=== PATIENT | male | born 1980 | race Caucasian/White ===

== ENCOUNTER → 2017-06-09 | Outpatient (CLI) | payer BC ==
[~2017-06-09] MED LIST: MULT-506 PO
--- NOTE | 2017-06-09 10:34 | DIAGNOSTIC IMAGING REPORT ---
CHEST 2 VIEWS ROUTINE CLINICAL HISTORY: Acute bronchitis. Cough. COMPARISON STUDY: Chest radiograph November 13, 2008. FINDINGS: The lung volumes are normal. There is no consolidation to suggest pneumonia. Pulmonary vascularity is normal. Slight elevation of the right hemidiaphragm is unchanged. Cardiomediastinal silhouette is normal. No pneumothorax or pleural effusion is identified. IMPRESSION: No acute cardiopulmonary findings. Electronically signed by: Ravin Cutler M.D. 06/09/2017 10:33 AM Dictated Date/Time: 06/09/2017 10:32 AM
== END | disposition home or self-care (01) ==
LOC: C.RAD1850 09:50
PROVIDERS: ATTEND Family Medicine
DX: J20.9 Acute bronchitis, unspecified (principal)